=== PATIENT | female | born 1990 | race Caucasian/White ===

== ENCOUNTER 2024-01-28 14:08 | Emergency (ER) | payer OTHER ==
[~2024-01-28] VITALS: Ht 175.3 cm; Wt 76.2 kg
[2024-01-28] MEDS ORDERED: ONDANSETRON HCL/PF 4 MG/2 ML VIAL ONE (14:36)
[2024-01-28] MEDS ORDERED: ACETAMINOPHEN ES 500 MG TABLET ONE (14:36)
[2024-01-28] MEDS: IV NS 0.9% 1,000 ML BAG IV ONE (14:55)
[2024-01-28] MEDS: ONDANSETRON HCL/PF 4 MG/2 ML VIAL IVP ONE (14:55)
[2024-01-28 14:56] LABS: BASOPHILS % (AUTO) 0.1 % (0.0-2.0); EOSINOPHILS % (AUTO) 0.1 % (0.0-6.0); HEMATOCRIT 49 % (33-45); HEMOGLOBIN 16.5 g/dL (11.5-14.8); LYMPHOCYTES # (AUTO) 0.5 K/uL (0.8-4.8); LYMPHOCYTES % (AUTO) 2.7 % (20.0-44.0); MEAN CORPUSCULAR HEMOGLOBIN 32 PG (26.0-33.0); MEAN CORPUSCULAR HGB CONC 34 g/dl (31.0-36.0); MEAN CORPUSCULAR VOLUME 94 fL (82-100); MONOCYTES # (AUTO) 0.4 K/uL (0.1-1.30); MONOCYTES % (AUTO) 2.3 % (2.0-12.0); NEUTROPHILS # (AUTO) 16.1 K/uL (1.8-8.9); NEUTROPHILS % (AUTO) 94.8 % (43.0-81.0); PLATELET COUNT (AUTO) 240 K/uL (150-450); RED BLOOD CELL COUNT(AUTO) 5.16 MIL/uL (4.0-5.2); RED CELL DISTRIBUTION WIDTH 12.3 % (11.5-15.0); WHITE BLOOD COUNT (AUTO) 16.9 K/uL (4.3-11.0)
[2024-01-28] MEDS: ACETAMINOPHEN ES 500 MG TABLET PO ONE (14:58)
[2024-01-28 15:09] LABS: CREATININE 0.7 mg/dL (0.6-1.3)
[2024-01-28 15:43] LABS: ALBUMIN 4.1 g/dL (3.4-5.0); BILIRUBIN,DIRECT 0.3 mg/dL (0.0-0.2); BILIRUBIN,TOTAL 1.7 mg/dL (0.2-1.0); TOTAL PROTEIN, SERUM 7.2 g/dL (6.4-8.2)
[2024-01-28 15:49] LABS: CALCIUM, SERUM 8.9 mg/dL (8.5-10.1)
[2024-01-28 16:08] LABS: APPEARANCE,URINE Clear (CLEAR); BILIRUBIN,URINE Negative (NEGATIVE); BLOOD, URINE Negative Ery/uL (NEGATIVE); COLOR,URINE YELLOW (YELLOW); KETONES,URINE 40 mg/dL (NEGATIVE); LEUKOCYTE ESTERASE ,URINE Negative (NEGATIVE); NITRITE, URINE Negative (NEGATIVE); PH,URINE 5.5 (5.0-8.0); PROTEIN,URINE Negative (NEGATIVE); UGLUCOSE Negative (NEGATIVE); UROBILINOGEN,URINE 0.2 EU/dL (0.2)
[2024-01-28 16:23] LABS: ADD URINE CULTURE NO; BACTERIA,URINE Few /HPF (None Seen); RBC,URINE 0-2 /HPF (0-2); SQUAMOUS EPITHELIAL CELL,UR Moderate /HPF (None Seen); WBC,URINE 0-2 /HPF (0-3)
[2024-01-28 16:24] LABS: MUCUS,URINE Moderate /LPF (None Seen)
[2024-01-28] MEDS ORDERED: ONDA4TAB11 PO (16:44)
[2024-01-28 17:10] VITALS: BP 110/81; TEMP 98.1; O2SAT 99
== END 2024-01-28 17:11 | disposition home or self-care (01) ==
LOC: ER 14:27
DX: O21.9 Vomiting of pregnancy, unspecified (principal); O99.281 Endocrine, nutritional and metabolic diseases complicating pregnancy, first trimester; E86.0 Dehydration; O99.891 Other specified diseases and conditions complicating pregnancy; O20.9 Hemorrhage in early pregnancy, unspecified; Z3A.08 8 weeks gestation of pregnancy; R10.2 Pelvic and perineal pain; Z79.899 Other long term (current) drug therapy
CPT/HCPCS: 99285; 96374; 76805; 96361; 85025; 80048; 83690; 80076; 81001; 36415; 84702; J2405; J7030